=== PATIENT | female | born 1990 | race Caucasian/White ===

== ENCOUNTER 2017-05-26 01:36 | Inpatient (IN) | payer OTHER ==
[2017-05-26 02:25] LABS: Amnisure Internal Control QC ACCEPTABLE (ACCEPTABLE)
[2017-05-26] MEDS ORDERED: Promethazine HCl 25 MG/ML VIAL IM PRN ×3 (02:34→15:20)
[2017-05-26] MEDS ORDERED: Lidocaine 1% (PF) 30 ML VIAL SC PRN (02:34)
[2017-05-26] MEDS ORDERED: Ondansetron HCl/PF 4 MG/2 ML Vial IVP PRN ×3 (02:34→15:20)
[2017-05-26 02:41] LABS: Amnisure Test RUPTURE DETECTED (No Rupture)
--- NOTE | 2017-05-26 02:42 | PDOC.LDHP ---
Labor and Delivery H&P Chief complaint: contractions HPI: 26 yo WF G1 EDC= 05/29/17 c/o regular UCs and SROM at 9;30 p Current gestational age (weeks): 39 Due date: 05/29/17 Dating criteria: last menstrual period Grav: 1 Para: 0 Current complications: none Abnormal US findings: No Past Medical History: none Current medications: pre- vitamins Previous surgical history: none Allergies/Adverse Reactions: Allergies Allergy/AdvReac Type Severity Reaction Status Date / Time codeine Allergy Verified 05/26/17 02:11 Social history: none - Physical Exam Vital signs reviewed and normal: yes General: NAD Heart: RRR Lungs: CTAB Abdomen: gravid Extremeties: trace edema FHT: category 1 [place] contractions every: q 2-4 mins - Vaginal Exam cm dilated: 3 Effacement: 90% Station: -1 - OB Labs Blood type: A RH: positive Antibody Screen: negative HIV: negative RPR: negative HEPSAg: negative 1 hour GCT: negative GBS: negative - Assessment L&D Assessment: term patient in labor - Plan Plan: admit to L&D, labor augmentation if indicated
[2017-05-26] MEDS: Lactated Ringer's 1,000 ML IV SCH ×2 (03:21→05:41)
[2017-05-26 03:24] VITALS: BMI 38.7
[2017-05-26 03:30] LABS: Hemoglobin 12.6 g/dL (12.0-16.0); Mean Corpuscular HGB CONC 34.6 g/dL (32.0-36.0); Mean Corpuscular Hemoglobin 29.8 pg (27.0-31.0); Mean Corpuscular Volume 86.1 fl (81.0-99.0); Mean Platelet Volume 6.8 fL (7.4-10.4); Platelet Count 255 thou/uL (130-400); RBC Distribution Width 12.6 % (11.5-14.5); Red Blood Cell (RBC) Count 4.22 mill/uL (4.20-5.40); White Blood Cell (WBC) Count 11.2 thou/uL (4.8-10.8)
[2017-05-26 04:06] LABS: Syphilis Antibody Nonreactive (Nonreactive); Syphilis Antibody Index 0.03 S/CO (<1.00 Non-Reactive)
[2017-05-26 04:08] LABS: HBSAg Index 0.19 S/CO (0-0.99); Hep B Surf Ag Non-Reactive S/CO (NonReactive)
[2017-05-26] MEDS ORDERED: Bupivacaine 0.5% 20 ML, Fentanyl 400 MCG in Sodium Chloride 0.9% 72 ML EPIDURAL SCH (05:00)
[2017-05-26] MEDS ORDERED: DISCONTINUE ALL PREVIOUS NARCOTICS FS SCH (05:00)
[2017-05-26] MEDS ORDERED: ePHEDrine/0.9% NaCl/PF SYRINGE 50 mg/10 ml SLOW IVP PRN (05:57)
[2017-05-26] MEDS ORDERED: Naloxone HCl 0.4 mg/ml Vial IVP PRN ×2 (05:57)
[2017-05-26] MEDS ORDERED: diphenhydrAMINE 50 MG/ML VIAL IVP PRN (05:57)
[2017-05-26] MEDS ORDERED: Eucerin (Mineral Oil/Petrolatum,White) 30 gm Jar TOP PRN (05:57)
[2017-05-26] MEDS ORDERED: Lactated Ringer's 500 ML IV PRN (05:57)
[2017-05-26] MEDS ORDERED: Acetaminophen 325 MG TAB PO PRN (05:57)
[2017-05-26] MEDS ORDERED: Fentanyl 4mcg/Marcaine 0.1% Cassette 100 ML EPIDURAL SCH (06:00)
[2017-05-26] MEDS ORDERED: Communication Order-Pharmacy FS SCH (06:00)
[2017-05-26] MEDS ORDERED: LR 500 ML/Oxytocin 10 units 500 ML ONE (06:15)
--- NOTE | 2017-05-26 06:16 | PDOC.LDPN ---
Labor & Delivery Progress Note - Subjective Subjective: comfortable, other - Objective General: NAD Uterine fundus: non tender Dilation: 4 cm Effacement: 90% FHT: category 1 [place] contractions every: UCs q 2-4 - Assessment (1) Active labor at term Code(s): [id number] - Current Visit: Yes Status: Acute (2) Slow progress in first stage of labor Code(s): O62.0 - PRIMARY INADEQUATE CONTRACTIONS Current Visit: Yes Status: Acute Plan: pitocin for augmentation (epidural in place, pt. is comfortable)
[2017-05-26] MEDS ORDERED: LR 500 ML/Oxytocin 10 units 500 ML IV SCH (06:30)
[2017-05-26] MEDS ORDERED: Bupivacaine/Epinephrine 0.25% 30 ML VIAL ONE (11:11)
[2017-05-26] MEDS: LR / Pitocin 40 units/1000 ml 1,000 ML IV PRN ×2 (11:20→13:56)
--- NOTE | 2017-05-26 11:40 | PDOC.OPDEL ---
OB Operative/Delivery Note Delivery Dr/Surgeon: Bisi Miller DO Pre-Delivery Diagnosis: active labor Procedure/Post Delivery Dx: spontaneous vaginal delivery Weeks gestation: 39 Anesthesia: epidural - Findings A Sex: female - 1 min: 8 - 5 min: 9 - Additional Findings/Plan Placenta delivered: spontaneous Repaired Obstetrical Laceration: 2nd degree Estimated blood loss: 300 cc Compilations/Other Findings: No complications. delivered in BOZENA position. Thin meconium stained AF noted upon delivery Post delivery plan: routine recovery
[2017-05-26] MEDS ORDERED: LR / Pitocin 40 units/1000 ml 1,000 ML IV SCH (15:20)
[2017-05-26] MEDS ORDERED: Bisacodyl 10 MG SUPP PR PRN (15:20)
[2017-05-26] MEDS ORDERED: Benzocaine/Menthol 20-0.5% 60 ML CAN TOP PRN (15:20)
[2017-05-26] MEDS ORDERED: Lanolin Ointment 7 GM TUBE TOP PRN (15:20)
[2017-05-26] MEDS ORDERED: Milk Of Magnesia 30 ML UDCUP PO PRN (15:20)
[2017-05-26] MEDS ORDERED: diphenhydrAMINE 25 MG CAP PO PRN (15:20)
[2017-05-26] MEDS ORDERED: Methylergonovine 0.2 MG/ML VIAL IM PRN (15:20)
[2017-05-26] MEDS ORDERED: traMADol HCl 50 MG TAB PO PRN (15:20)
[2017-05-26] MEDS ORDERED: Misoprostol 200 MCG TAB VAG SCH (15:30)
[2017-05-26] MEDS: Docusate Calcium (SURFAK) 240 MG CAP PO SCH (21:23)
[2017-05-26] MEDS: Ibuprofen 800 MG TAB PO SCH (21:24)
[2017-05-27] MEDS: Ibuprofen 800 MG TAB PO SCH ×3 (05:50→21:32)
[2017-05-27] MEDS: Docusate Calcium (SURFAK) 240 MG CAP PO SCH ×2 (07:58→21:32)
[2017-05-27] MEDS: Prenatal Vitamin 1 TAB PO SCH (07:58)
--- NOTE | 2017-05-27 09:05 | PDOC.PP ---
Post Progress Note Post Day #: PPD#1 PO intake tolerated: yes Ambulation: yes Vital Signs (12 hours) Temp Pulse Resp BP Pulse Ox 05/27/17 08:21 98.1 F 63 18 98 05/27/17 07:54 98.1 F 63 18 115/71 97 05/27/17 04:30 98.5 F 70 18 05/27/17 00:08 98.1 F 70 16 100/59 L Weight Weight 92.986 kg - Physical Examination General: NAD Respiratory: non-labored breathing Abdominal: lochia Fundus firm & at: umbilicus Neurological: no gross focal deficits Psychiatric: A&Ox3 Result Diagrams: 05/26/17 03:03 Additional Labs: Post Labs Hep Bs Antigen Non-Reactive S/CO (NonReactive) 05/26/17 03:03 (1) Active labor at term Code(s): [id number] - Status: Acute (2) Slow progress in first stage of labor Code(s): O62.0 - PRIMARY INADEQUATE CONTRACTIONS Status: Acute - Assessment/Plan Doing well. Routine care.
[2017-05-27 10:47] LABS: Hemoglobin 10.9 g/dL (12.0-16.0)
--- NOTE | 2017-05-28 06:21 | PDOC.PP ---
Post Progress Note Post Day #: PPD#2 Subjective: Doing well. Ready for home. PO intake tolerated: yes Ambulation: yes Vital Signs (12 hours) Temp Pulse Resp BP Pulse Ox 05/27/17 19:50 97.8 F 64 34 H 138/84 97 Weight Weight 92.986 kg - Physical Examination General: NAD Abdominal: lochia Extremities: negative homans (B) Psychiatric: A&Ox3 Result Diagrams: 05/27/17 10:28 Additional Labs: Post Labs Hep Bs Antigen Non-Reactive S/CO (NonReactive) 05/26/17 03:03 (1) Active labor at term Code(s): [id number] - Status: Acute (2) Slow progress in first stage of labor Code(s): O62.0 - PRIMARY INADEQUATE CONTRACTIONS Status: Acute - Assessment/Plan DC home. Precautions given. RTC [address] Hays.
[2017-05-28] MEDS: Ibuprofen 800 MG TAB PO SCH (06:30)
[2017-05-28] MEDS: Docusate Calcium (SURFAK) 240 MG CAP PO SCH (08:51)
[2017-05-28] MEDS: Prenatal Vitamin 1 TAB PO SCH (08:51)
[2017-05-28 09:33] VITALS: BP 116/73; TEMP 97.9
== END 2017-05-28 11:30 | disposition home or self-care (01) | DRG 775 ==
LOC: L&D/OP 01:36 → L&D 02:44 → 3SW 15:19
PROVIDERS: ADMIT Obstetrics & Gynecology; ATTEND Obstetrics & Gynecology
PROC: 10E0XZZ Delivery of Products of Conception, External Approach (ICD-10-PCS; principal; 2017-05-26)
PROC: 0KQM0ZZ Repair Perineum Muscle, Open Approach (ICD-10-PCS; 2017-05-26)
DX: O70.1 Second degree perineal laceration during delivery (principal); Z37.0 Single live birth; O62.0 Primary inadequate contractions; Z3A.39 39 weeks gestation of pregnancy; O77.0 Labor and delivery complicated by meconium in amniotic fluid
CPT/HCPCS: 36415; 51702; 76815; 84112; 85014; 85018; 85027; 86780; 87340; 99285; J2001; J3010; J3490; J7050; J7120